=== PATIENT | male | born 1970 | race Caucasian/White ===

== ENCOUNTER 2016-11-14 03:49 | Emergency (ER) | payer SELFPAY ==
[~2016-11-14] VITALS: Ht 177.8 cm; Wt 90.0 kg
[2016-11-14] MEDS ORDERED: ONDANSETRON ODT 4 MG ONE (03:55)
[2016-11-14] MEDS ORDERED: ONDANSETRON ODT 4 MG PO ONE (04:30)
[2016-11-14] MEDS ORDERED: SODIUM CHLORIDE 0.9% 1,000ML IVBOLUS ONE (04:30)
[2016-11-14] MEDS ORDERED: SODIUM CHLORIDE FLUSH 10ML SYR IVF ONE (04:30)
[2016-11-14 04:49] LABS: BLOOD UREA NITROGEN 17 mg/dL (7-18)
[2016-11-14] MEDS ORDERED: MECLIZINE CHEWABLE 25 MG TAB ONE (05:18)
[2016-11-14] MEDS ORDERED: MECLIZINE CHEWABLE 25 MG TAB PO ONE (05:30)
[2016-11-14 07:04] VITALS: BP 113/84
== END 2016-11-14 07:07 | disposition home or self-care (01) ==
LOC: ED 05:13
DX: H81.10 Benign paroxysmal vertigo, unspecified ear (principal); I10 Essential (primary) hypertension
CPT/HCPCS: 36415; 80048; 82040; 85025; 99284; J7030; Q0162